=== PATIENT | female | born 1930 | race Caucasian/White ===

== ENCOUNTER → 2017-12-03 | Outpatient (CLI) | payer OTHER ==
[~2017-12-03] MED LIST: ACET500 PO; ALLO100 PO; ALLO300 PO; AMIT25 PO; AMIT50 PO; ASPI81CH PO; ATOR10 PO; CALCA500CH PO; CALCIUM WITH V1 EACH PO; CEFU50SU PO; CODACE30 PO; Central-Vite1 EAC3 PO; Colace100 MG PO; DOXE2.5 PO; ESTRTP PV; FEBU40TA PO; FLUO10 PO; FLUO20 PO; FOLI1 PO; FURO20 PO; GATI5OPSO OD; ISOMON20 PO; ISOMON30 PO; KETO.5OPSO OD; LISI10 PO; LISI5 PO; MELA3 PO; MELADOX3 MG PO; METO25ER PO; METR500 PO; MULVITMINF PO; Norco 5-325 Ta1 EACH PO; PANT20 PO; PROACE100 PO; QUET25 PO; RXCODACET PO; SACC250C PO; SIMV10 PO; SIMV20 PO; TEMA15 PO; VENL37.5ER PO; WARF1 PO; WARF2.5 PO; WARF3 PO; eye drops
[2017-12-03 16:18] LABS: Appearance, Urine Cloudy (Clear); Bilirubin, Urine Neg (Neg); Blood, Urine 1+ (Neg); Color, Urine Yellow (P-Yellow); Glucose Qualitative, Urine Neg (Neg); Ketones, Urine Neg (Neg); Leukocyte Esterase, Urine 2+ (Neg); Nitrite, Urine Neg (Neg); Protein, Urine Neg (Neg); Urobilinogen, Urine NORM (Normal); pH, Urine 6.5 (5.0-8.0)
[2017-12-03 16:35] LABS: Bacteria Many /hpf; White Blood Cells, Urine 25-50 /hpf (0-5)
[2017-12-03 16:37] LABS: Red Blood Cells, Urine 0-2 /hpf (0-2); Squamous Epithelial Cells Few /hpf (Few)
== END | disposition home or self-care (01) ==
LOC: OLS 10:00 → LAB SHORT 10:00
PROVIDERS: Family Medicine
DX: N39.0 Urinary tract infection, site not specified (principal)
CPT/HCPCS: 81001; 87077; 87086; 87186

== ENCOUNTER → 2018-01-27 | Outpatient (CLI) | payer OTHER | END | disposition home or self-care (01) | LOC: LAB SHORT 08:00 → LAB 08:00 | DX: R35.0 Frequency of micturition (principal) | CPT/HCPCS: 87077; 87086; 87186 ==

== ENCOUNTER → 2018-10-25 | Outpatient (CLI) | payer OTHER ==
[~2018-10-25] MED LIST changes: +FEBU40TA; +Isosorbide Mono30 MG PO; +NORT25 PO; +PANT40 PO; +VENL37.5 PO
== END | disposition home or self-care (01) ==
LOC: LAB SHORT 14:11 → LAB 14:11
DX: N39.0 Urinary tract infection, site not specified (principal)
CPT/HCPCS: 87086

== ENCOUNTER 2018-11-18 10:52 | Inpatient (IN) | payer OTHER ==
[~2018-11-18] VITALS: Ht 162.6 cm; Wt 63.5 kg
[~2018-11-18 10:52] MED LIST changes: +Aspirin EC81 MG PO; -FEBU40TA; -VENL37.5 PO
[2018-11-18 11:29] LABS: BASOPHILS PERCENT AUTO 0 % (0-2); EOSINOPHILS PERCENT AUTO 0 % (0-6); Hematocrit 40.6 % (33.0-51.0); Hemoglobin 12.7 g/dL (11.5-16.0); IMMATURE GRAN ABSOLUTE AUTO 0.01 K/mm3 (0.00-0.10); IMMATURE GRAN PERCENT AUTO 0 % (0-1); LYMPHOCYTES PERCENT AUTO 27 % (21-46); MONOCYTES ABSOLUTE AUTO 0.31 K/mm3 (0.16-1.47); MONOCYTES PERCENT AUTO 6 % (4-13); Mean Corpuscular HGB 30.3 pg (26.0-34.0); Mean Corpuscular HGB Conc 31.3 g/dL (31.5-36.5); Mean Corpuscular Volume 97 fL (80-100); Mean Platelet Volume 9.9 fL (9.1-12.4); NEUTROPHILS ABSOLUTE AUTO 3.26 K/mm3 (1.96-9.15); NEUTROPHILS PERCENT AUTO 67 % (41-73); Platelet Count 81 K/mm3 (150-400); RDW Coefficient Variation 13.6 % (11.7-14.2); RDW Standard Deviation 48.1 fL (35.1-46.3); Red Blood Cell Count 4.19 M/mm3 (3.80-5.20); White Blood Cell Count 4.88 K/mm3 (4.00-11.30)
[2018-11-18 11:42] LABS: Alanine Aminotransfer (ALT/SGP 40 U/L (12-78); Albumin, Blood 2.4 g/dL (3.4-5.0); Albumin/Globulin Ratio 0.7 (0.8-1.8); Alk Phos 75 U/L (50-136); Anion Gap 4 mmol/L (6-16); Aspartate Aminotrans (AST/SGOT 21 U/L (12-37); Bilirubin, Total 0.6 mg/dL (0.1-1.0); Blood Urea Nitrogen 31 mg/dL (8-24); Bun/Creatinine Ratio 28.2 (12.0-20.0); CO2, Blood 28 mmol/L (21-32); Calcium, Blood 8.4 mg/dL (8.5-10.1); Chloride, Blood 107 mmol/L (98-108); Globulin, Blood 3.6 g/dL (2.2-4.0); Glomerular Filtration Rate 50 (60-); Glucose, Blood 119 mg/dL (70-99); Potassium, Blood 4.9 mmol/L (3.5-5.5); Sodium, Blood 139 mmol/L (136-145); Troponin I <0.015 ng/mL (0.000-0.040)
[2018-11-18 13:15] LABS: Source, Urine Clean Catch
[2018-11-18 13:20] LABS: Bilirubin, Urine Neg (Neg); Blood, Urine Neg (Neg); Glucose Qualitative, Urine Neg (Neg); Ketones, Urine Neg (Neg); Leukocyte Esterase, Urine Neg (Neg); Nitrite, Urine Neg (Neg); Protein, Urine 2+ (Neg); Urobilinogen, Urine NORM (Normal)
[2018-11-18] MEDS ORDERED: Calcium 600 MG1 EACH PO (13:41)
[2018-11-18] MEDS ORDERED: Central-Vite1 EAC3 PO (13:42)
[2018-11-18 13:46] LABS: Appearance, Urine Clear (Clear); Color, Urine Yellow (P-Yellow)
[2018-11-18 13:48] LABS: Bacteria Few /hpf; Red Blood Cells, Urine 0-2 /hpf (0-2); Squamous Epithelial Cells Few /hpf (Few); White Blood Cells, Urine 0-2 /hpf (0-5)
--- NOTE | 2018-11-18 17:58 | NUR ---
[facility] CLINICAL ASSESSMENT. Visited pt in ER7. , Jaxon, present intitially and DIL at bedside. Lab in for an extended period trying to get labs drawn before transfer to medical floor. Pt is an 88 year old female who presented to the ER today with a hx of becoming more weak, loss of appetite, failure to thrive and trouble breathing. She appears very pale and frail in bed with O2 on. She is nonverbal and noncommunicative. She withdraws from painful stimuli of lab draw attempts but very weakly. Toma instructs textbook associate that pt cannot answer questions re: name and for her. Pt had a CVA recently and with change in mentation noted at home family was concerned that she has had another CVA. Pt admitted to medical floor for pneumonia, encephalopathy. When pt transferred, stated that he is exhausted, as he was up w/pt all night and in the ER with her all day. He left to go home and rest prior to us being able to discuss her code status and goals of care. When I asked toma what family would like in regards to code status she states, whatever pt has been before and whatever Pop says. Pt is listed as a full code at this time. We discussed pt's current frail condition and our concerns with her current guarded respiratory and overall condition. Agreed with TOMA that I would call pt's in a few minutes when he is home and before he lies down to rest to determine code status at this time and finish remainder of advanced care planning conversation with him in the am. I was able to reach Jaxon at home. I asked if we could discuss his wishes for his 's care. He was agreeable. After explaining what full code meant, limited code and DNR code status, Jaxon states that he and his had discussed this in the past and he does not want any rescusitation efforts of any kind performed for [place]. Jaxon asks me if I am connected to hospice. I tell him no, but that I can discuss it with him and talk to [place]'s Drs about that if he would like. would like to do that. I suggested that we meet in the am to further discuss her care. He will be in around 8 am. T/c to Dr with report and request for DNR code status orders. This was given and entered. RN updated on change of code status and and plan.
--- NOTE | 2018-11-18 18:23 | NUR ---
1602 PT ADMITTED TO MEDICAL FLOOR VIA GURNEY, PT SLIDE TRANSFERED TO BED WITH THREE STAFF WITH NO ISSUES. PT WITH EXPRESSIVE APHASIA, R SIDED WEAKNESS, R FACIAL DROOP, TAYLA. LUNGS WITH CRACKLES IN THE BASES AND COARSE THROUGHOUT, ON 3L O2 NC, CONGESTED NONPRODUCTIVE COUGH. BREATHING EQUAL AND NONLABORED. RESPIRATORY PANEL SENT TO LAB. L THUMB BRUISED, SCATTERED BRUISING TO BUE AND BLE. DAUGHTER REPORTS PT FELL OUT OF BED YESTERDAY AND THEN WAS TAKEN TO URGENT CARE, PT THEN RECIEVED L HAND AND WRIST XR. SKIN OTHERWISE INTACT. DAUGHTER ARRIVED WITH PT AT TIME OF ADMIT, SON ARRIVED LATER, IS AT HOME RESTING AT THIS TIME. PT WITH NO S/SX OF DISCOMFORT OR DISTRESS.
[2018-11-18 21:45] LABS: Adenovirus Not Detected (NOT DETECT); Bordetella pertussis Not Detected (NOT DETECT); Chlamydophila pneumoniae Not Detected (NOT DETECT); Coronavirus 229E Not Detected (NOT DETECT); Coronavirus HKU1 Not Detected (NOT DETECT); Coronavirus NL63 Not Detected (NOT DETECT); Coronavirus OC43 Not Detected (NOT DETECT); Human Metapneumovirus Not Detected (NOT DETECT); Human Rhinovirus/Enterovirus Not Detected (NOT DETECT); Influenza A Not Detected (NOT DETECT); Influenza A/2009-H1 Not Detected (NOT DETECT); Influenza A/H1 Not Detected (NOT DETECT); Influenza A/H3 Not Detected (NOT DETECT); Influenza B Not Detected (NOT DETECT); Mycoplasma pneumoniae Not Detected (NOT DETECT); Parainfluenza Virus 1 Not Detected (NOT DETECT); Parainfluenza Virus 2 Not Detected (NOT DETECT); Parainfluenza Virus 3 Not Detected (NOT DETECT); Parainfluenza Virus 4 Not Detected (NOT DETECT); Respiratory Syncytial Virus Not Detected (NOT DETECT)
[2018-11-19 04:43] LABS: BASOPHILS ABSOLUTE AUTO 0.01 K/mm3 (0.00-0.23); BASOPHILS PERCENT AUTO 0 % (0-2); EOSINOPHILS PERCENT AUTO 0 % (0-6); Hematocrit 46.7 % (33.0-51.0); Hemoglobin 14.6 g/dL (11.5-16.0); IMMATURE GRAN ABSOLUTE AUTO 0.03 K/mm3 (0.00-0.10); IMMATURE GRAN PERCENT AUTO 1 % (0-1); LYMPHOCYTES ABSOLUTE AUTO 1.04 K/mm3 (0.84-5.20); LYMPHOCYTES PERCENT AUTO 17 % (21-46); MONOCYTES PERCENT AUTO 5 % (4-13); Mean Corpuscular HGB 30.9 pg (26.0-34.0); Mean Corpuscular HGB Conc 31.3 g/dL (31.5-36.5); Mean Corpuscular Volume 99 fL (80-100); Mean Platelet Volume 9.4 fL (9.1-12.4); NEUTROPHILS ABSOLUTE AUTO 4.91 K/mm3 (1.96-9.15); NEUTROPHILS PERCENT AUTO 78 % (41-73); Platelet Count 83 K/mm3 (150-400); RDW Coefficient Variation 13.7 % (11.7-14.2); RDW Standard Deviation 50.2 fL (35.1-46.3); Red Blood Cell Count 4.72 M/mm3 (3.80-5.20); White Blood Cell Count 6.29 K/mm3 (4.00-11.30)
--- NOTE | 2018-11-19 04:43 | NUR ---
SHIFT SUMMARY: PATIENT HAS REMAINED RESTING MOST OF THE NIGHT, SHE IS GARBLED SPEECH CAN ONLY SAY A FEW WORDS SINCE HER STROKE YEARS AGO. ONLY TIME SHE ATTEMPTED TO GET OUT OF BED IS WHEN SHE NEEDED A ATTENDS CHANGE. IV FLUIDS REMAINED INFUSING WITH NO PROBLEMS THROUGHOUT THE NIGHT. LUNG SOUNDS WERE COURSE WITH CRACKLES IN THE BASES, SHE DID START TO COUGH ALOT THROUGHOUT THE NIGHT, NEEDING POSITIONED EVERY NOW AND THEN TO HELP CLEAR. VS REMAINED STABLE, DENIED ANY PAIN OR DISCOMFORT. SHE PLEASANT AND COOPERATIVE, EASILY REDIRECTED. NO CHANGES HAVE OCCURRED OTHER THEN HER INCREASE IN COUGH, BUT STILL NONPRODUCTIVE. WILL REPORT TO DAY SHIFT.
[2018-11-19 05:05] LABS: Albumin, Blood 2.8 g/dL (3.4-5.0); Albumin/Globulin Ratio 0.7 (0.8-1.8); Bilirubin, Total 0.7 mg/dL (0.1-1.0); Bun/Creatinine Ratio 21.1 (12.0-20.0); Calcium, Blood 8.3 mg/dL (8.5-10.1); Creatinine, Blood 1.14 mg/dL (0.40-1.00); Globulin, Blood 4.1 g/dL (2.2-4.0); Total Protein, Blood 6.9 g/dL (6.4-8.2)
--- NOTE | 2018-11-19 09:30 | NUR ---
[facility] CLINICAL VISIT - Met pt's Jaxon in room at 0815 as planned. Pt is appears much bighter this am than she did in ER yesterday, with color improved, less respiratory distress noted. Pt nodded and smiled a little when I said good morning and smiled at her. Audible upper airway wheeze noted and congested respirations and cough. Pt is unable to verbalize more than one word at a time and most words are uninteligible. reports that pt needs 100% assist with eating and still chokes frequently on small bites. ST eval pending at the time of our visit and PT eval was happening while we talked at end of hallway. prefered to leave the room to discuss goals of care, comfort care and hospice. We spoke of those things at length and many questions answered in regard to what happens if pt cannot swallow, medications, goals, hospice services at home, level of care needed now, respite CG, comfort care option before d/c or cont to treat pneumonia while IV site available prior to d/c. very interested in Hospice. He is expressing CG fatigue and back pain due to caring for pt in low positioned bed. He wondered if she could go to [place] to allow him to rest before going home. I discussed criteria needed for SNF. Private pay for ICF/LTC at [place] or medicaid assist. 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 He has never applied for medicaid. He gets some infrequent assist from local family members that may be able to be beefed up if need was of short duration. Pt was unable to work with pt this am. Please see his notes for full assessment. I gave booklets and we reviewed some of material in "considering comfort care" and "hard choices for loving people. He would like to review further and contemplate all the info discussed and we will meet again later today. Report called to and report given to RN re: all of above. I case conferenced with PT and ST also. is indicating stron interest in Hospice support on d/c whether he chooses comfort care at this time or not.
--- NOTE | 2018-11-19 17:27 | NUR ---
Mrs. Ribeiro was alone in room and awake. However, she had trouble staying awake for conversation. She denied pain, but did not respond to any other comments/questions. Per chart, she is Bahai, so I offered prayer. She did not say anything in response. I will remain available to pt and spouse.
--- NOTE | 2018-11-19 18:29 | NUR ---
SHIFT SUMMARY PT WAS PLACED ON COMFORT CARE THIS AFTERNOON. DR. HOUSTON DID ORDER FOR LAB DRAWS AND CHEST XRAY AND WOULD LIKE THEM TO BE DONE. THIS RN CLARIFIED THE ORDERS. CHURCHILL PLACED FOR COMFORT. PT CONFUSED AND APHASIC. PT ABLE TO ANSWER YES/NO TO QUESTIONS. NO ACUTE CHANGES THIS SHIFT. CALL LIGHT IN REACH. BED ALARM ON FOR SAFETY. WILL CONTINUE TO MONITOR AND REPORT TO ONCOMING RN.
[2018-11-20 04:47] LABS: BASOPHILS ABSOLUTE AUTO 0.01 K/mm3 (0.00-0.23); BASOPHILS PERCENT AUTO 0 % (0-2); EOSINOPHILS PERCENT AUTO 0 % (0-6); Hematocrit 40.5 % (33.0-51.0); Hemoglobin 13.3 g/dL (11.5-16.0); IMMATURE GRAN ABSOLUTE AUTO 0.05 K/mm3 (0.00-0.10); IMMATURE GRAN PERCENT AUTO 1 % (0-1); LYMPHOCYTES ABSOLUTE AUTO 1.07 K/mm3 (0.84-5.20); LYMPHOCYTES PERCENT AUTO 12 % (21-46); MONOCYTES ABSOLUTE AUTO 0.43 K/mm3 (0.16-1.47); MONOCYTES PERCENT AUTO 5 % (4-13); Mean Corpuscular HGB 31.4 pg (26.0-34.0); Mean Corpuscular HGB Conc 32.8 g/dL (31.5-36.5); NEUTROPHILS ABSOLUTE AUTO 7.69 K/mm3 (1.96-9.15); NEUTROPHILS PERCENT AUTO 83 % (41-73); Platelet Count 94 K/mm3 (150-400); RDW Coefficient Variation 14.1 % (11.7-14.2); RDW Standard Deviation 48.7 fL (35.1-46.3); Red Blood Cell Count 4.24 M/mm3 (3.80-5.20); White Blood Cell Count 9.25 K/mm3 (4.00-11.30)
[2018-11-20 04:52] LABS: Mean Corpuscular Volume 96 fL (80-100)
--- NOTE | 2018-11-20 08:04 | NUR ---
Rn summary: Patient is on comfort care. Pt was repositioned q3 hours. Had sm incontinent stool. Pt did say she was hurting once and was medicated with roxanol 5mg x1 with good relief. Pt did not try to get out of bed. Pt continues to receive IV fluids and antibiotics. Bed alarm is on. Report to day shift RN.
--- NOTE | 2018-11-20 09:06 | NUR ---
PATIENT DID NOT EAT BREAKFAST THIS SHIFT DUE TO BEING NPO AT THIS TIME.
--- NOTE | 2018-11-20 09:49 | NUR ---
PATIENTS CATHETER WAS EMPTIED AND 300ML WAS OUT.
--- NOTE | 2018-11-20 12:30 | NUR ---
PATEINTS ATTENDS WERE CHANGED AND PATIENT WAS CLEANED UP FROM A BOWEL MOVEMENT.
--- NOTE | 2018-11-20 12:31 | NUR ---
PATIENT DID NOT EAT LUNCH THIS SHIFT DUE TO BEING NPO AT THIS TIME.
--- NOTE | 2018-11-20 13:32 | NUR ---
PATIENTS CATHETER WAS EMPTIED AND 400ML OUT.
--- NOTE | 2018-11-20 14:30 | NUR ---
PATIENTS ATTENDS WERE CHANGED AND PATIENT WAS CLEANED UP FROM LARGE BOWEL MOVEMENT AND GOWN WAS CHNAGED.
--- NOTE | 2018-11-20 17:03 | NUR ---
Pt visit this afternoon. Pt is resting in bed and appears comfortable. Pt responds with yes words only during visit. Offered gentle voice with therapeutic touch. No signs of distress at this time. Palliative Care will remain available.
--- NOTE | 2018-11-20 17:45 | NUR ---
PATIENTS CATHETER WAS EMPTIED AND 350ML WAS OUT.
--- NOTE | 2018-11-20 18:32 | NUR ---
PATIENT DID NOT EAT DINNER THIS SHIFT DUE TO BEING NPO AT THIS TIME.
--- NOTE | 2018-11-20 18:48 | NUR ---
SHIFT SUMMARY PT HAS BEEN AWAKE A LOT OF THE SHIFT AND TRIES TO GET OUT OF BED. PT DENIES PAIN WHEN ASKED. FAMILY IN TO SEE PT THIS SHIFT. IVF INFUSING WITHOUT DIFFICULTY. CHURCHILL IN PLACE AND PATENT. PT CONTINUES TO BE NPO. PLANS FOR PT TO BE DISCHARGED HOME ON HOSPICE. WILL CONTINUE TO MONITOR AND REPORT TO ONCOMING RN.
--- NOTE | 2018-11-21 03:52 | NUR ---
SHIFT SUMMARY: 88 Y/O SLENDER FEMALE ON COMFORT CARE. PT TENTATIVELY SCHEDULED BE DISCHARGED TODAY WITH HOSPICE. PT ALERT AND ORIENTED X 1, ABLE TO FOLLOW VERY SIMPLE VERBAL COMMANDS. PTS CHURCHILL CATHETER DRAINING CLEAR YELLOW FLUID. PT CONTINUES TO BE NPO, ORAL CARE PROVIDED EVERY 2 HOURS VIA STAFF. PT HAD FREQUENT NON PRODUCTIVE COUGH MIDDLE OF NIGHT WITH MD CONTACTED AND ROBITUSSIN 100MG PO GIVEN WITH RELIEF FELT. PT APPEARS TO HAVE NO PAIN OR NAUSEA. PTS BED LOW POSITION, CALL LIGHT AT SIDE, BED ALARM APPLIED.
--- NOTE | 2018-11-21 08:33 | NUR ---
PATIENT DID NOT EAT BREAKFAST THIS SHIFT DUE TO BEING NPO AT THIS TIME.
--- NOTE | 2018-11-21 09:19 | NUR ---
PATIENTS CATHETER WAS EMPTIED AND 300ML OUT. PATIENT WAS ALSO REPOSTIONED.
--- NOTE | 2018-11-21 10:20 | NUR ---
PATIENTS ATTENDS WERE CHANGED AND HAD A LARGE BOWEL MOVEMENT AND CATH CARE WAS DONE.
[2018-11-21] MEDS ORDERED: Haldol5 MG/1 ML PO (10:39)
[2018-11-21] MEDS ORDERED: LORA1 PO (10:40)
[2018-11-21] MEDS ORDERED: MORP20L SL (10:41)
[2018-11-21] MEDS ORDERED: ONDA4ODT SL (10:41)
[2018-11-21] MEDS ORDERED: Transderm-Scop1 EACH TD (10:42)
--- NOTE | 2018-11-21 10:48 | NUR ---
D/C INSTRUCTIONS PROVIDED. IV REMOVED. PT D/C VIA STRETCHER WITH [facility] AT 1045.
== END 2018-11-21 10:45 | disposition hospice, home (50) | DRG 177 ==
LOC: ER 10:52 → MEDS 13:28
PROVIDERS: Emergency Medicine; ADMIT Family Medicine
DX: J69.0 Pneumonitis due to inhalation of food and vomit (principal); G93.41 Metabolic encephalopathy; I69.351 Hemiplegia and hemiparesis following cerebral infarction affecting right dominant side; I13.0 Hypertensive heart and chronic kidney disease with heart failure and stage 1 through stage 4 chronic kidney disease, or unspecified chronic kidney disease; R62.7 Adult failure to thrive; I69.320 Aphasia following cerebral infarction; I50.9 Heart failure, unspecified; N18.3 Chronic kidney disease, stage 3 (moderate); E78.5 Hyperlipidemia, unspecified; K21.9 Gastro-esophageal reflux disease without esophagitis; Z51.5 Encounter for palliative care; F03.90 Unspecified dementia, unspecified severity, without behavioral disturbance, psychotic disturbance, mood disturbance, and anxiety
CPT/HCPCS: 36415; 70450; 71045; 80053; 81001; 83605; 84145; 84484; 85025; 87040; 87486; 87581; 87633; 87798; 92526; 92610; 93005; 93010; 96365; 99285-25; J0456; J0696; J2543; J7030; J7050; P9612